=== PATIENT | female | born 1995 | race Caucasian/White ===

== ENCOUNTER 2016-07-18 13:40 | Emergency (ER) | END 2016-07-18 18:26 | disposition home or self-care (01) | DX: O20.0 Threatened abortion (principal); R10.2 Pelvic and perineal pain ==

== ENCOUNTER 2016-07-19 20:52 | Emergency (ER) | payer MEDICAID ==
[~2016-07-19] VITALS: Ht 162.6 cm; Wt 56.0 kg
[2016-07-19 21:31] VITALS: Ht 162.6 cm; Wt 56.0 kg
--- NOTE | 2016-07-19 23:15 | ERD ---
ER Documentation Chief Complaint Date/Time DATE: 07/19/16 TIME: 23:11 Chief Complaint back for worse pain and hormone check. HPI 19-year-old female presents here in emergency department for complaints of pelvic pain radiating to the back started 2 days ago, worst today. Patient also is having vaginal bleeding with the pain, states continuously bleeding. Patient is here today since patient's pain got worse. Patient is complaining of dysuria denies any hematuria. Patient denies any fever or chills. Patient denies any nausea or vomiting. Patient supposedly 5 weeks . ROS All systems reviewed and are negative except as per history of present illness. Medications Home Meds Reported Medications [none] Unknown Strength No Conflict Check 07/19/16 Allergies Allergies: Coded Allergies: No Known Allergy (Unverified , 07/19/16) PMhx/Soc Medical and Surgical Hx: pt denies Medical Hx, pt denies Surgical Hx Hx Alcohol Use: No Hx Substance Use: No Hx Tobacco Use: No FmHx Family History: No coronary disease, No diabetes, No other Physical Exam Vitals Vital Signs Date Time Temp Pulse Resp B/P Pulse Ox O2 Delivery O2 Flow Rate FiO2 07/19/16 21:31 98.3 78 16 118/74 97 Physical Exam GENERAL: The patient is well developed and appropriate for usual state of health, in no apparent distress. CHEST: Clear to auscultation bilaterally. There are no rales, wheezes or rhonchi. HEART: Regular rate and rhythm. No murmurs, clicks, rubs or gallops. No S3 or S4. ABDOMEN: Soft, nontender and nondistended. Good bowel sounds. No rebound or guarding. No gross peritonitis. No gross organomegaly or masses. No Alvarado sign or McBurney point tenderness. BACK: No midline or flank tenderness. EXTREMITIES: Equal pulses bilaterally. There is no peripheral clubbing, cyanosis or edema. No focal swelling or erythema. Full range of motion. Grossly neurovascularly intact. NEURO: Alert and oriented. Cranial nerves 2-12 intact. Motor strength in all 4 extremities with 5/5 strength. Sensation grossly intact. Normal speech and gait. SKIN: There is no apparent rash or petechia. The skin is warm and dry. HEMATOLOGIC AND LYMPHATIC: There is no evidence of excessive bruising or lymphedema. No gross cervical, axillary, or inguinal lymphadenopathy. Vaginal: Noted erythema in the perineal area labia majora and labia minora. Small amount of blood in the vaginal vault, cervical os is closed. No cervical motion tenderness noted. Result Diagram: 07/19/16 2348 Results 24 hrs Laboratory Tests Test 07/19/16 23:37 07/19/16 23:48 Urine Bacteria FEW Urine Bilirubin NEGATIVE Urine Clarity CLEAR Urine Color LT. YELLOW Urine Glucose NEGATIVE% Urine Hemoglobin 3+ Urine Ketones NEGATIVE Urine Leukocyte Esterase NEGATIVE Urine Microscopic RBC >50/HPF Urine Microscopic WBC 0-2/HPF Urine Mucus MANY Urine Nitrite NEGATIVE Urine Specific [place] 1.025 Urine Squamous Epithelial Cells MODERATE Urine Total Protein NEGATIVE Urine Urobilinogen 1.0 E.U./dL Urine pH 6.5 Basophils # 0.010^3/ul Basophils % 0.5% Beta HCG, Quantitative 673.9mIU/ml Blood Morphology Comment Eosinophils # 0.110^3/ul Eosinophils % 1.2% Hematocrit 37.1% Hemoglobin 12.5g/dl Lymphocytes # 3.010^3/ul Lymphocytes % 33.2% Mean Corpuscular Hemoglobin 34.2pg Mean Corpuscular Hemoglobin Concent 33.7g/dl Mean Corpuscular Volume 101.5fl Mean Platelet Volume 8.0fl Monocytes # 0.610^3/ul Monocytes % 7.2% Neutrophils # 5.210^3/ul Neutrophils % 57.9% Nucleated Red Blood Cells # 0.010^3/ul Nucleated Red Blood Cells % 0.0/100WBC Platelet Count 12306^3/UL Red Blood Count 3.6510^6/ul Red Cell Distribution Width 12.7% White Blood Count 8.910^3/ul PROCEDURE: US OB. CLINICAL INDICATION: . Vaginal bleeding. Clinical estimated gestational age is 7 weeks 4 days with estimated date of delivery 03/03/2017 TECHNIQUE: Transabdominal and transvaginal imaging of the gravid uterus was performed. Images are reviewed on a high-resolution PACS workstation. COMPARISON: 07/18/2016 FINDINGS: No intrauterine is seen. The right ovary measures 3.6 x 2.5 x 3.4 cm and contains a 2.9 cm follicle. The left ovary measures 2.5 x 1.9 x 1.6 cm and is unremarkable. No adnexal mass is seen. Trace free fluid is seen in the cul- de-sac. IMPRESSION: No intrauterine seen. The previously seen possible intrauterine gestational sac containing pole seen on the previous study is not seen presently. The findings could be secondary to spontaneous . Ectopic is not excluded. No ectopic is seen. Trace free fluid in cul-de-sac. Correlation with serial quantitative beta HCGs is recommended. RPTAT: HJES .Donald Cedillo MD, MD Date Time Electronically viewed and signed by .Donald Cedillo MD, MD on 07/20/2016 00:52 .S/ CC: EUSEBIO FORRESTER REVOLVING INVENTORY CLERK Procedures/MDM Medical Decision Making: Patients vaginal bleeding is most likely consistent of a spontaneous . Patient does not show any evidence of hypovolemic shock. Patients hemoglobin and hematocrit is stable. There is low suspicion for ectopic . CAROLINE results doesn't show the intrauterine seen yesterday, no adnexal masses noted, patient passed more clots and bleeding prior to the ultrasound. BetaHCG Quantitative is very low compared to yesterday The patient is Rh+, does not need RhoGAM this time. There is no signs of symptoms of dehydration. There is low suspicion for sepsis. Patient appears well and is hemodynamically stable. Disposition: Home. Condition: Stable. Prescription: Tylenol Instructions: Patient is advised to do bed rest, avoid heavy lifting, and avoid having sex until cleared by OB doctor. Patient is advised to follow up with OB doctor in 48 hours for reevaluation of symptoms, repeat beta HCG quantitative and ultrasound. Patient is advised that is symptoms are worst, severe bleeding, dizziness, severe abdominal pain, fever, worst signs and symptoms to return to the emergency department immediately. Departure Diagnosis: Primary Impression: Spontaneous Condition: Stable Patient Instructions: Miscarriage, Spontaneous (Completed) Additional Instructions: Patient is advised to do bed rest, avoid heavy lifting, and avoid having sex until cleared by OB doctor. Patient is advised to follow up with OB doctor 48 hours for reevaluation of symptoms, repeat beta HCG quantitative and ultrasound. Patient is advised that is symptoms are worst, severe bleeding, dizziness, severe abdominal pain, fever, worst signs and symptoms to return to the emergency department immediately. EUSEBIO FORRESTER NP Jul 19, 2016 23:15
--- NOTE | 2016-07-20 00:52 | RADRPT ---
PROCEDURE: US OB. CLINICAL INDICATION: . Vaginal bleeding. Clinical estimated gestational age is 7 weeks 4 days with estimated date of delivery 03/03/2017 TECHNIQUE: Transabdominal and transvaginal imaging of the gravid uterus was performed. Images are reviewed on a high-resolution PACS workstation. COMPARISON: 07/18/2016 FINDINGS: No intrauterine is seen. The right ovary measures 3.6 x 2.5 x 3.4 cm and contains a 2.9 c m follicle. The left ovary measures 2.5 x 1.9 x 1.6 cm and is unremarkable. No adnexal mass is see n. Trace free fluid is seen in the cul-de-sac. IMPRESSION: No intrauterine seen. The previously seen possible intrauterine gestational sac containing pole seen on the previous study is not seen presently. The findings could be secondary to sp ontaneous . Ectopic is not excluded. No ectopic is seen. Trace free fl uid in cul-de-sac. Correlation with serial quantitative beta HCGs is recommended. RPTAT: HJES .Donald Cedillo MD, MD Date Time Electronically viewed and signed by .Donald Cedillo MD, on 07/20/2016 00:52 .S/
[2016-07-20 01:10] LABS: BASOPHILS % 0.5 % (0.0-2.0); EOSINOPHILS # 0.1 10^3/ul (0.0-0.5); EOSINOPHILS % 1.2 % (0.0-7.0); HEMATOCRIT 37.1 % (37.0-47.0); HEMOGLOBIN 12.5 g/dl (12.0-16.0); LYMPHOCYTES % 33.2 % (18.0-55.0); MEAN CORPUSCULAR HEMOGLOBIN 34.2 pg (29.0-33.0); MEAN CORPUSCULAR HGB CONC 33.7 g/dl (32.0-37.0); MEAN CORPUSCULAR VOLUME 101.5 fl (72.0-104.0); MONOCYTE # 0.6 10^3/ul (0.3-0.9); MONOCYTES % 7.2 % (0.0-13.0); NEUTROPHIL # 5.2 10^3/ul (1.6-7.5); NEUTROPHILS % 57.9 % (30.0-74.0); PLATELET COUNT 265 10^3/UL (140-440); RED BLOOD COUNT 3.65 10^6/ul (4.20-5.40); RED CELL DISTRIBUTION WIDTH 12.7 % (11.5-14.5); UNCORRECTED WBC 8.9 10^3/ul (4.8-10.8); WHITE BLOOD COUNT 8.9 10^3/ul (4.8-10.8)
[2016-07-20 01:11] LABS: CONDITION 1; LH ANALYZER COMMENTS 1
[2016-07-20 01:19] LABS: ADD UMIC YES; URINE BILIRUBIN (Dip) NEGATIVE (NEGATIVE); URINE BLOOD (Dip) 3+ (NEGATIVE); URINE COLOR LT. YELLOW (YELLOW); URINE GLUCOSE (Dip) NEGATIVE (NEGATIVE); URINE KETONES (Dip) NEGATIVE (NEGATIVE); URINE LEUKOCYTE ESTERASE (Dip) NEGATIVE (NEGATIVE); URINE NITRITE (Dip) NEGATIVE (NEGATIVE); URINE TOTAL PROTEIN (Dip) NEGATIVE (NEGATIVE); URINE UROBILINOGEN (Dip) 1.0 E.U./dL (0.1-1.0)
[2016-07-20 01:27] LABS: BACTERIA,URINE FEW; SQUAMOUS EPITHELIAL CELL,UR MODERATE; URINE RBCS >50 /HPF (0)
[2016-07-20 01:28] LABS: MUCUS,URINE MANY
[2016-07-20] MEDS ORDERED: ACET500C5 PO (01:53)
[2016-07-20 02:08] VITALS: BP 132/71
== END 2016-07-20 02:09 | disposition home or self-care (01) ==
LOC: FTE 20:52
DX: O03.9 Complete or unspecified spontaneous abortion without complication (principal); R10.2 Pelvic and perineal pain
CPT/HCPCS: 36415; 76801; 76817; 81001; 84702; 85025; Z7502; 81003

== ENCOUNTER 2017-10-03 09:30 | Emergency (ER) | END 2017-10-03 10:23 | disposition home or self-care (01) ==

== ENCOUNTER 2018-01-24 10:42 | Emergency (ER) | END 2018-01-24 13:31 | disposition home or self-care (01) ==

== ENCOUNTER 2018-03-23 01:43 | Emergency (ER) | END 2018-03-23 04:10 | disposition home or self-care (01) ==

== ENCOUNTER 2018-06-25 12:15 | Emergency (ER) | payer BC, MEDICAID ==
[~2018-06-25] VITALS: Ht 167.6 cm; Wt 64.4 kg
[~2018-06-25 12:15] MED LIST: ACET325T33 PO; ACET500C5 PO; CEPH-443 PO; IBUP-1542 PO; PENI500T PO
[2018-06-25 12:30] VITALS: Ht 167.6 cm; Wt 64.4 kg
[2018-06-25] MEDS ORDERED: SOD CHLORIDE 0.9% 1,000 ML IV STA (13:30)
[2018-06-25] MEDS ORDERED: ONDANSETRON 4 MG INJ IV STA (13:30)
--- NOTE | 2018-06-25 14:14 | ERD ---
ER Documentation Chief Complaint Chief Complaint FEVER WITH NAUSEA/VOMITING AND POOR APPETITE X 2 DAYS HPI This is a 22-year-old female denies significant past medical history presents ED with complaints of nausea and vomiting times 3 days. Patient admits to having multiple episodes of nonbilious nonbloody vomiting. Patient also admits to feeling warm. Has not taken temperature. Denies chills, hemoptysis, diarrhea, constipation, melena, chest pain, abdominal pain, vaginal pain, vaginal discharge, vaginal bleeding or vaginal pain. No known drug allergies. ROS All systems reviewed and are negative except as per history of present illness. Medications Home Meds Active Scripts Ondansetron (Ondansetron Odt) 4 Mg Tab.rapdis, 4 MG PO Q6H PRN for NAUSEA AND/OR VOMITING, #10 TAB Prov:ARLEN MONTERO PA-C 06/25/18 Ibuprofen* (Motrin*) 600 Mg Tab, 600 MG PO Q6H PRN for PAIN AND OR ELEVATED TEMP, #30 TAB Prov:RICARDO LITTLEAR F 03/23/18 Cephalexin* (Keflex*) 500 Mg Capsule, 500 MG PO QID for 5 Days, CAP Prov:PASILABANRICARDOAR F 03/23/18 Acetaminophen* (Tylenol*) 325 Mg Tablet, 2 TAB PO Q6 PRN for PAIN AND OR ELEVATED TEMP, #20 TAB Prov:ANIKET MANCILLA PA-C 10/03/17 Ibuprofen* (Motrin*) 600 Mg Tab, 600 MG PO Q6, #30 TAB Prov:ANIKET MANCILLA PA-C 10/03/17 Penicillin V Potassium* (Penicillin V K*) 500 Mg Tab, 500 MG PO BID for 7 Days, #14 TAB Prov:ANIKET MANCILLA PA-C 10/03/17 Acetaminophen* (Tylophen*) 500 Mg Capsule, 1 CAP PO Q6H PRN for PAIN AND OR ELEVATED TEMP, #20 CAP Prov:EUSEBIO FORRESTER NP 07/20/16 Reported Medications [none] Unknown Strength No Conflict Check 07/19/16 Allergies Allergies: Coded Allergies: No Known Allergy (Unverified , 07/19/16) PMhx/Soc History of Surgery: No Anesthesia Reaction: No Hx Neurological Disorder: No Hx Respiratory Disorders: No Hx Cardiac Disorders: No Hx Psychiatric Problems: No Hx Alcohol Use: Yes (socially) Hx Substance Use: No Hx Tobacco Use: No FmHx Family History: No diabetes Physical Exam Vitals Vital Signs Date Temp Pulse Resp B/P (MAP) Pulse Ox O2 O2 Flow FiO2 Time Delivery Rate 06/25/18 98.3 82 18 130/71 99 Room Air 15:22 (90) 06/25/18 98.3 125 18 132/72 95 12:30 (92) Physical Exam Const: No acute distress Head: Atraumatic Eyes: Normal Conjunctiva ENT: Normal External Ears, Nose and Mouth. Neck: Full range of motion. No meningismus. Resp: Clear to auscultation bilaterally Cardio: Regular rate and rhythm, no murmurs Abd: Soft, non tender, non distended. Normal bowel sounds Skin: No petechiae or rashes Back: No midline or flank tenderness Ext: No cyanosis, or edema Neur: Awake and alert Psych: Normal Mood and Affect Result Diagram: 06/25/18 1351 06/25/18 1351 Results 24 hrs Laboratory Tests Test 06/25/18 13:51 06/25/18 14:00 White Blood Count 9.5 10^3/ul Red Blood Count 4.05 10^6/ul Hemoglobin 13.3 g/dl Hematocrit 40.5 % Mean Corpuscular Volume 100.0 fl Mean Corpuscular Hemoglobin 32.8 pg Mean Corpuscular Hemoglobin Concent 32.8 g/dl Red Cell Distribution Width 11.2 % Platelet Count 317 10^3/UL Mean Platelet Volume 9.3 fl Immature Granulocytes % 0.300 % Neutrophils % 82.0 % Lymphocytes % 12.9 % Monocytes % 4.4 % Eosinophils % 0.0 % Basophils % 0.4 % Nucleated Red Blood Cells % 0.0 /100WBC Immature Granulocytes # 0.030 10^3/ul Neutrophils # 7.8 10^3/ul Lymphocytes # 1.2 10^3/ul Monocytes # 0.4 10^3/ul Eosinophils # 0.0 10^3/ul Basophils # 0.0 10^3/ul Nucleated Red Blood Cells # 0.0 10^3/ul Sodium Level 145 mmol/L Potassium Level 3.7 mmol/L Chloride Level 103 mmol/L Carbon Dioxide Level 28 mmol/L Anion Gap 14 Blood Urea Nitrogen 20 mg/dl Creatinine 0.67 mg/dl Est Glomerular Filtrat Rate mL/min > 60 mL/min Glucose Level 102 mg/dl Calcium Level 9.8 mg/dl Total Bilirubin 0.4 mg/dl Direct Bilirubin 0.00 mg/dl Indirect Bilirubin 0.4 mg/dl Aspartate Amino Transf (AST/SGOT) 30 IU/L Alanine Aminotransferase (ALT/SGPT) 23 IU/L Alkaline Phosphatase 74 IU/L Total Protein 8.5 g/dl Albumin 4.8 g/dl Globulin 3.70 g/dl Albumin/Globulin Ratio 1.29 Lipase 78 U/L Urine Color YELLOW Urine Clarity SLIGHTLY CLOUDY Urine pH 5.0 Urine Specific [place] 1.028 Urine Ketones 2+ mg/dL Urine Nitrite NEGATIVE mg/dL Urine Bilirubin NEGATIVE mg/dL Urine Urobilinogen NEGATIVE mg/dL Urine Leukocyte Esterase 1+ Michele/ul Urine Microscopic RBC 4 /HPF Urine Microscopic WBC 18 /HPF Urine Squamous Epithelial Cells FEW /HPF Urine Mucus MODERATE /HPF Urine Hemoglobin 1+ mg/dL Urine Glucose NEGATIVE mg/dL Urine Total Protein 1+ mg/dl POC Beta HCG, Qualitative NEGATIVE Current Medications Medications Dose Sig/Arthur Start Time Status Last (Trade) Ordered Route PRN Stop Time Admin Dose Reason Admin Sodium 1,000 ml @ Q1H STAT 06/25/18 DC 06/25/18 Chloride 1,000 mls/hr IV 13:30 06/25/18 14:07 14:29 Ondansetron 4 mg ONCE STAT 06/25/18 DC 06/25/18 HCl (Zofran IV 13:30 06/25/18 14:07 Inj) 13:33 Procedures/MDM LAB INTERPRETATION: CBC shows no evidence of hemorrhage or infection Chemistry shows no evidence of significant electrolyte abnormalities or renal insufficiency Liver function test shows no evidence of acute biliary or hepatic dysfunction Coagulation study showed no concerning coagulopathy Lipase shows no evidence of acute pancreatitis urinalysis remarkable for 18 wbs, 4 rbcs, leuk esterase 1+ ER COURSE: The patient was given [IV normal saline and Zofran The medication was well tolerated and the patient reports improvement in symptoms. The patient was stable throughout ED course. I kept the patient and/or family informed of laboratory and diagnostic imaging results throughout the emergency room course. The patient was promptly evaluated and a treatment plan was devised based on H&P and other data. This plan was discussed with the patient who agreed and had no further questions or concerns prior to discharge. MEDICAL DECISION MAKING: This is a 22-year-old female presents ED with nausea and vomiting times 3 days. Her abdomen is soft and nontender to palpation. Patient was given fluids and antinausea medication in the emergency department and reports feeling better. Lab work is unremarkable. Urinalysis remarkable for WBC, RBC and leukocyte esterase 1+. Patient does not have any urinary symptoms. Will send for urine culture. At this time there is no gastrointestinal emergency. No evidence of appendicitis, cholecystitis, pink otitis, small bowel obstruction, perforated viscus, obstructive pyelonephritis, among others. Vitals are stable patient can be managed close outpatient follow-up. Advised patient follow-up with primary care next 48 hours. Return to ED with any worsening symptoms DISPOSITION PLAN: We discussed follow up with the patient's primary care doctor within 24 to 48 hours. Patient counseled regarding my diagnostic impression and care plan. Prior to discharge all questions answered. Pt agrees with treatment plan and understands strict return precautions. Precautionary instructions provided including instructions to return to the ER if not improving or for any worsening or changing symptoms or concerns. SPECIALIST FOLLOW UP RECOMMENDED: None Patient has been advised to follow up with primary care in 1-2 days. Disclaimer: Inadvertent spelling and grammatical errors are likely due to EHR/dictation software use and do not reflect on the overall quality of patient care. Also, please note that the electronic time recorded on this note does not necessarily reflect the actual time of the patient encounter. Departure Diagnosis: Primary Impression: Nausea and vomiting Vomiting type: unspecified Vomiting Intractability: non-intractable Qualified Codes: R11.2 - Nausea with vomiting, unspecified Condition: Stable Patient Instructions: Nausea and Vomiting-Adult Referrals: [facility] Additional Instructions: Patient advised to return to the ED immediately for new or worsening symptoms. Patient advised to follow up with primary care provider in the next 24-48 hours. Patient verbalized understanding and agrees with treatment plan and course of action. If patient has no primary care they may follow up with one of the community clinics listed on the following page or one of the options listed below [facility] + [facility] [address] [place] [id number] or [facility] [address] [place] [address] [address] ARLEN MONTERO PA-C 8, 2019 14:14
[2018-06-25] MEDS ORDERED: ONDA4TAB14 PO (15:14)
[2018-06-25 15:22] VITALS: BP 130/71; PULSE 82; RESP 18
== END 2018-06-25 15:23 | disposition home or self-care (01) ==
LOC: FTE 12:15
DX: R11.2 Nausea with vomiting, unspecified (principal)
CPT/HCPCS: 36415; 80053; 81001; 81025; 83690; 85025; 96361; 96374; 99284; J2405; J7030

== ENCOUNTER 2018-07-11 17:44 | Emergency (ER) | payer BC ==
[~2018-07-11] VITALS: Ht 162.6 cm; Wt 66.0 kg
[~2018-07-11 17:44] MED LIST changes: +ONDA4TAB14 PO
[2018-07-11 17:50] VITALS: Ht 162.6 cm; Wt 66.0 kg
--- NOTE | 2018-07-11 20:16 | ERD ---
ER Documentation Chief Complaint Chief Complaint LOWER ABD PAIN X 3 HRS , SENT BY PMD TO R/O ECTOPIC PREG HPI This is a 22-year-old female who was sent here by urgent care to rule out ectopic although the patient states she does not know if she is even . She started her period today and has lower left-sided pelvic cramping with bleeding. No dysuria or frequency. No nausea or vomiting or diarrhea. No fevers. ROS All systems reviewed and are negative except as per history of present illness. Medications Home Meds Active Scripts Ondansetron (Ondansetron Odt) 4 Mg Tab.rapdis, 4 MG PO Q6H PRN for NAUSEA AND/OR VOMITING, #10 TAB Prov:ARLEN MONTERO PA-C 06/25/18 Ibuprofen* (Motrin*) 600 Mg Tab, 600 MG PO Q6H PRN for PAIN AND OR ELEVATED TEMP, #30 TAB Prov:PRATIBHAILARICARDO RODNEYAR F 03/23/18 Cephalexin* (Keflex*) 500 Mg Capsule, 500 MG PO QID for 5 Days, CAP Prov:PASILABANRICARDOAR F 03/23/18 Acetaminophen* (Tylenol*) 325 Mg Tablet, 2 TAB PO Q6 PRN for PAIN AND OR ELEVATED TEMP, #20 TAB Prov:ANIKET MANCILLA PA-C 10/03/17 Ibuprofen* (Motrin*) 600 Mg Tab, 600 MG PO Q6, #30 TAB Prov:ANIKET MANCILLA PA-C 10/03/17 Penicillin V Potassium* (Penicillin V K*) 500 Mg Tab, 500 MG PO BID for 7 Days, #14 TAB Prov:ANIKET MANCILLA PA-C 10/03/17 Acetaminophen* (Tylophen*) 500 Mg Capsule, 1 CAP PO Q6H PRN for PAIN AND OR ELEVATED TEMP, #20 CAP Prov:EUSEBIO FORRESTER NP 07/20/16 Reported Medications [none] Unknown Strength No Conflict Check 07/19/16 Allergies Allergies: Coded Allergies: No Known Allergy (Unverified , 07/19/16) PMhx/Soc Medical and Surgical Hx: pt denies Medical Hx History of Surgery: No Anesthesia Reaction: No Hx Neurological Disorder: No Hx Respiratory Disorders: No Hx Cardiac Disorders: No Hx Psychiatric Problems: No Hx Alcohol Use: Yes (socially) Hx Substance Use: No Hx Tobacco Use: No Smoking Status: Never smoker FmHx Family History: No diabetes Physical Exam Vitals Vital Signs Date Temp Pulse Resp B/P (MAP) Pulse Ox O2 O2 Flow FiO2 Time Delivery Rate 07/11/18 98.1 93 18 116/79 98 17:50 (91) Physical Exam INITIAL VITAL SIGNS: Reviewed by me GENERAL: Awake, alert and oriented x 4, well appearing, nontoxic, speaking in full sentences. No acute distress HEAD: Atraumatic NECK: Supple. No masses. Full range of motion. No meningismus. No midline tenderness. EYES: EOMI. PERRL. RESPIRATORY: Clear to auscultation bilaterally. Symmetric chest wall rise. No wheezing or rales. No accessory muscle use. CV: Regular rate and rhythm. No murmurs, rubs, or gallops. ABDOMEN: Soft, non-distended. Nontender. Negative [place]. Negative McBurneys point tenderness. No CVA tenderness bilaterally. No guarding. No rebound. : Deffered. Result Diagram: 07/11/18190607/11/181906 Results 24 hrs Laboratory Tests Test 07/11/18 19:07 07/11/18 19:09 White Blood Count 10.7 10^3/ul Red Blood Count 3.76 10^6/ul Hemoglobin 12.5 g/dl Hematocrit 37.7 % Mean Corpuscular Volume 100.3 fl Mean Corpuscular Hemoglobin 33.2 pg Mean Corpuscular Hemoglobin Concent 33.2 g/dl Red Cell Distribution Width 11.5 % Platelet Count 282 10^3/UL Mean Platelet Volume 9.3 fl Immature Granulocytes % 0.400 % Neutrophils % 86.5 % Lymphocytes % 7.7 % Monocytes % 4.8 % Eosinophils % 0.2 % Basophils % 0.4 % Nucleated Red Blood Cells % 0.0 /100WBC Immature Granulocytes # 0.040 10^3/ul Neutrophils # 9.3 10^3/ul Lymphocytes # 0.8 10^3/ul Monocytes # 0.5 10^3/ul Eosinophils # 0.0 10^3/ul Basophils # 0.0 10^3/ul Nucleated Red Blood Cells # 0.0 10^3/ul Urine Color YELLOW Urine Clarity SLIGHTLY CLOUDY Urine pH 7.0 Urine Specific [place] 1.023 Urine Ketones TRACE mg/dL Urine Nitrite NEGATIVE mg/dL Urine Bilirubin NEGATIVE mg/dL Urine Urobilinogen NEGATIVE mg/dL Urine Leukocyte Esterase NEGATIVE Michele/ul Urine Microscopic RBC > 182 /HPF Urine Microscopic WBC 14 /HPF Urine Mucus FEW /HPF Urine Hemoglobin 3+ mg/dL Urine Glucose NEGATIVE mg/dL Urine Total Protein 1+ mg/dl Sodium Level 142 mmol/L Potassium Level 3.5 mmol/L Chloride Level 103 mmol/L Carbon Dioxide Level 27 mmol/L Anion Gap 12 Blood Urea Nitrogen 13 mg/dl Creatinine 0.67 mg/dl Est Glomerular Filtrat Rate mL/min > 60 mL/min Glucose Level 109 mg/dl Calcium Level 9.6 mg/dl Total Bilirubin 0.1 mg/dl Direct Bilirubin 0.00 mg/dl Indirect Bilirubin 0.1 mg/dl Aspartate Amino Transf (AST/SGOT) 21 IU/L Alanine Aminotransferase (ALT/SGPT) 14 IU/L Alkaline Phosphatase 87 IU/L Total Protein 8.2 g/dl Albumin 4.9 g/dl Globulin 3.30 g/dl Albumin/Globulin Ratio 1.48 Lipase 54 U/L POC Beta HCG, Qualitative NEGATIVE Procedures/MDM 22-year-old female who has pelvic cramping. She is hemodynamically stable and well-appearing. Her ultrasound is negative. Workup is unremarkable. Likely pelvic cramping from starting her menstruation today. She was given copies of all the labs and ultrasound so that she can follow-up with primary care. Patient counseled regarding my diagnostic impression and care plan. Prior to dis charge all questions answered. Pt agrees with treatment plan and understands strict return precautions. Pt is instructed to follow up with primary care provider within 24-48 hours. Precautionary instructions provided including instructions to return to the ER if not improving or for any worsening or changing symptoms or concerns. Departure Diagnosis: Primary Impression: Pelvic pain Condition: Stable Patient Instructions: Pelvic Pain, Unknown Cause Additional Instructions: Call your primary care doctor TOMORROW for an appointment during the next 1-2 days.See the doctor sooner or return here if your condition worsens before your appointment time. ISREAL FAROOQ PA-C Jul 11, 2018 20:16
[2018-07-11 20:21] VITALS: BP 119/69; PULSE 86; RESP 18
== END 2018-07-11 20:22 | disposition home or self-care (01) ==
LOC: FTE 17:44
DX: R10.2 Pelvic and perineal pain (principal)
CPT/HCPCS: 36415; 76830; 76856; 80053; 81001; 81025; 83690; 85025

== ENCOUNTER 2018-09-14 13:55 | Emergency (ER) | payer BC ==
[~2018-09-14] VITALS: Ht 162.6 cm; Wt 65.0 kg
[2018-09-14 14:08] VITALS: Ht 162.6 cm; Wt 65.0 kg
[2018-09-14] MEDS ORDERED: ACETAMINOPHEN 500 MG TAB PO STA (17:15)
[2018-09-14] MEDS ORDERED: DIPHENHYDRAMINE 25 MG CAP PO ONE (17:30)
[2018-09-14] MEDS ORDERED: METOCLOPRAMIDE 10 MG TAB PO ONE (17:30)
[2018-09-14] MEDS ORDERED: METO10TA92 PO (19:38)
[2018-09-14] MEDS ORDERED: CEPH-443 PO (19:38)
[2018-09-14] MEDS ORDERED: ACET500C5 PO (19:38)
[2018-09-14 19:50] VITALS: BP 116/74; PULSE 74; RESP 18
--- NOTE | 2018-09-14 19:56 | ERD ---
ER Documentation Chief Complaint Chief Complaint pt bib self with c/o n/v and feeling off for a few days HPI 22-year-old female patient who is a A2 presents to the ED stating that she skipped a period and now feels nauseous and had a few episodes of nonbilious nonbloody vomiting. Reports that she has some intermittent abdominal cramping in her lower abdomen. Rates her pain an 8 out of 10. Denies any vaginal bleeding, vaginal discharge, chest pain, shortness of breath, dysuria, urgency, or frequency. ROS All systems reviewed and are negative except as per history of present illness. Medications Home Meds Active Scripts Doxylamine/Pyridoxine Hcl (DICLEGIS DR 10-10 MG TABLET) 1 Each Tablet.dr, 2 TAB PO QHS for nausea, #60 TAB Start 2 tabs at night. if symptoms persist after 2 days, icnrease to 1 tab in the morning and tabs at night. If symptoms persist, increase to tab in the morning, 1 tab in the afternoon, and two tabs at night. Maximum of 4 tabs/day. Prov:MARY ANN VALLEJO 09/23/18 Metoclopramide* (Reglan*) 10 Mg Tablet, 10 MG PO Q6 PRN for NAUSEA AND/OR VOMITING, #10 TAB Prov:LISA PEREZ PA-C 09/14/18 Acetaminophen* (Tylophen*) 500 Mg Capsule, 1 CAP PO Q6H PRN for PAIN AND OR ELEVATED TEMP, #20 CAP Prov:LISA PEREZ PA-C 09/14/18 Cephalexin* (Keflex*) 500 Mg Capsule, 500 MG PO QID for 7 Days, CAP Prov:LISA PEREZ PA-C 09/14/18 Ondansetron (Ondansetron Odt) 4 Mg Tab.rapdis, 4 MG PO Q6H PRN for NAUSEA AND/OR VOMITING, #10 TAB Prov:ARLEN MONTERO PA-C 06/25/18 Ibuprofen* (Motrin*) 600 Mg Tab, 600 MG PO Q6H PRN for PAIN AND OR ELEVATED TEMP, #30 TAB Prov:ROSANNA LITTLE 03/23/18 Cephalexin* (Keflex*) 500 Mg Capsule, 500 MG PO QID for 5 Days, CAP Prov:ROSANNA LITTLE 03/23/18 Acetaminophen* (Tylenol*) 325 Mg Tablet, 2 TAB PO Q6 PRN for PAIN AND OR ELEVATED TEMP, #20 TAB Prov:ANIKET MANCILLA PA-C 10/03/17 Ibuprofen* (Motrin*) 600 Mg Tab, 600 MG PO Q6, #30 TAB Prov:ANIKET MANCILLA PA-C 10/03/17 Penicillin V Potassium* (Penicillin V K*) 500 Mg Tab, 500 MG PO BID for 7 Days, #14 TAB Prov:ANIKET MANCILLA PA-C 10/03/17 Acetaminophen* (Tylophen*) 500 Mg Capsule, 1 CAP PO Q6H PRN for PAIN AND OR ELEVATED TEMP, #20 CAP Prov:EUSEBIO FORRESETR NP 07/20/16 Reported Medications [none] Unknown Strength No Conflict Check 07/19/16 Allergies Allergies: Coded Allergies: No Known Allergy (Unverified , 09/23/18) PMhx/Soc History of Surgery: No Anesthesia Reaction: No Hx Neurological Disorder: No Hx Respiratory Disorders: No Hx Cardiac Disorders: No Hx Psychiatric Problems: No Hx Alcohol Use: Yes (socially) Hx Substance Use: No Hx Tobacco Use: No Smoking Status: Never smoker FmHx Family History: No diabetes, No coronary disease Physical Exam Vitals Vital Signs Date Temp Pulse Resp B/P (MAP) Pulse Ox O2 O2 Flow FiO2 Time Delivery Rate 09/14/18 98.6 74 18 116/74 100 Room Air 19:50 (88) 09/14/18 99.1 125 18 140/87 99 14:08 (104) Physical Exam Const: [id number], well-nourished. In no acute distress. Head: Atraumatic, normocephalic Eyes: Normal Conjunctiva without injection. No purulent discharge. ENT: Normal external ear, nose. Moist oropharynx without tonsillar exudates. Non-erythematous pharynx. Uvula midline. No drooling. No trismus. Neck: No cervical midline tenderness. Full range of motion. No meningismus. No cervical lymphadenopathy. No JVD. Resp: Clear to auscultation bilaterally. No wheezing, rhonchi, rales, or crackles. No accessory muscle use. No retractions. Cardio: Regular rate and rhythm. No murmurs, rubs or gallops. Abd: Soft, nontender, non distended. Normal bowel sounds. No palpable masses. No rebound tenderness. No guarding. Negative McBurney's point. Negative psoas sign. Negative obturator sign. Skin: No petechiae or rashes Back: No midline tenderness. No CVA tenderness. Ext: No cyanosis, or edema. Neur: Awake and alert. Normal gait. Normal coordination. Psych: Normal Mood and Affect Results 24 hrs Laboratory Tests Test 09/14/18 17:25 09/14/18 17:30 09/14/18 17:31 Urine Color YELLOW Urine Clarity SLIGHTLY CLOUDY Urine pH 5.0 Urine Specific [place] 1.028 Urine Ketones 2+ mg/dL Urine Nitrite NEGATIVE mg/dL Urine Bilirubin NEGATIVE mg/dL Urine Urobilinogen 1+ mg/dL Urine Leukocyte Esterase TRACE Michele/ul Urine Microscopic RBC 2 /HPF Urine Microscopic WBC 7 /HPF Urine Squamous Epithelial Cells FEW /HPF Urine Calcium Oxalate Crystals MODERATE /HPF Urine Bacteria FEW /HPF Urine Mucus MODERATE /HPF Urine Hemoglobin NEGATIVE mg/dL Urine Glucose NEGATIVE mg/dL Urine Total Protein NEGATIVE mg/dl White Blood Count 9.0 10^3/ul Red Blood Count 3.91 10^6/ul Hemoglobin 12.9 g/dl Hematocrit 38.4 % Mean Corpuscular Volume 98.2 fl Mean Corpuscular Hemoglobin 33.0 pg Mean Corpuscular 33.6 g/dl Hemoglobin Concent Red Cell Distribution Width 11.7 % Platelet Count 288 10^3/UL Mean Platelet Volume 9.3 fl Immature Granulocytes % 0.600 % Neutrophils % 77.3 % Lymphocytes % 15.7 % Monocytes % 5.9 % Eosinophils % 0.2 % Basophils % 0.3 % Nucleated Red Blood Cells % 0.0 /100WBC Immature Granulocytes # 0.050 10^3/ul Neutrophils # 7.0 10^3/ul Lymphocytes # 1.4 10^3/ul Monocytes # 0.5 10^3/ul Eosinophils # 0.0 10^3/ul Basophils # 0.0 10^3/ul Nucleated Red Blood Cells # 0.0 10^3/ul Sodium Level 139 mmol/L Potassium Level 3.7 mmol/L Chloride Level 101 mmol/L Carbon Dioxide Level 26 mmol/L Anion Gap 12 Blood Urea Nitrogen 19 mg/dl Creatinine 0.87 mg/dl Est Glomerular Filtrat > 60 mL/min Rate mL/min Glucose Level 104 mg/dl Calcium Level 9.9 mg/dl Total Bilirubin 0.5 mg/dl Direct Bilirubin 0.00 mg/dl Indirect Bilirubin 0.5 mg/dl Aspartate Amino 16 IU/L Transf (AST/SGOT) Alanine < 6 IU/L Aminotransferase (ALT/SGPT) Alkaline Phosphatase 61 IU/L Total Protein 8.2 g/dl Albumin 4.7 g/dl Globulin 3.50 g/dl Albumin/Globulin Ratio 1.34 Lipase 50 U/L Beta HCG, Quantitative 76652.0 mIU/ml POC Beta HCG, Qualitative POSITIVE Current Medications Medications Dose Sig/Arthur Start Time Status Last (Trade) Ordered Route PRN Stop Time Admin Dose Reason Admin 500 mg ONCE STAT 09/14/18 DC 09/14/18 Acetaminophen PO 17:15 17:30 (Tylenol 09/14/18 17:18 Tab) 10 mg ONCE ONCE 09/14/18 DC 09/14/18 Metoclopramid PO 17:30 17:30 e HCl 09/14/18 17:31 (Reglan) 25 mg ONCE ONCE 09/14/18 DC 09/14/18 Diphenhydrami PO 17:30 17:30 ne HCl 09/14/18 17:31 (Benadryl) Procedures/MDM 22-year-old female patient with no significant past medical history is a A2 presents to the ED complaining of abdominal cramping, nausea, vomiting and missing her menstruation. Patient has a blood pressure 140/87. Blood Pressure Assessment: Patient's blood pressure was elevated (>120/80) but appears stable without evidence of hypertension emergency or urgency. The patient was counseled about the risks of hypertension and urged to pursue outpatient monitoring and therapy within a week with their primary care physician. An ultrasound, beta-hCG, CBC, type and RH, UA was ordered to evaluate patient. CBC: No evidence of severe infection or anemia Urine: No elevation in nitrites, trace leukocyte esterase, hematuria. 7wbc Rh: O positive No indication for Rhogam at this time. beta Hc,146 IMPRESSION: 1. Small sac-like structure has developed in the endometrial cavity which may represent an early intrauterine . Estimated gestational age by mean sac diameter would be 6 weeks 4 days plus or minus 1 week that is somewhat concordant with the expected gestational age by dates. Without visualizing a yolk sac or embryo, a definitive diagnosis of intrauterine cannot be made and, therefore, ectopic cannot be completely excluded but is extremely unlikely. Furthermore, viability cannot be established. Recommend correlation with serial serum beta HCG and follow-up ultrasound in 7-10 days or earlier if clinically warranted. 2. A normal-appearing right ovary with vascular flow demonstrated on Doppler. The left ovary is not evident. 3. No adnexal mass or free fluid is identified. Patient currently has no abdominal pain. At this time however still cannot rule out ectopic as there is no pole or yolk sac noted. Patient will be treated for a urinary tract infection. There is a possible 6-week 4-day gestational sac noted. Patient was strictly instructed to follow-up with her [employer] for further evaluation and treatment as well as ruling out ectopic . Patient at this time was appropriate for outpatient management however is strictly instructed to return for any abdominal pain, vaginal bleeding. Low suspicion for symptomatic anemia, ectopic , sepsis, PID, appendicitis, ovarian torsion, tubo-ovarian abscess, surgical abdomen, or other emergent conditions. Patient was educated that there is a risk for threatened . Discharge medications: Reglan, Keflex, Tylenol Patient to follow up with [employer] in 2 days for further evaluation and treatment. Patient is to return sooner to the ED for any worsening symptoms. Patient's questions were answered. Patient understood and agreed with discharge plan. Departure Diagnosis: Primary Impression: Pelvic pain during Condition: Stable Patient Instructions: Urinary Tract Infections in Women, : Your First Trimester Changes, : Common Questions, : More Common Questions, : Body Changes, A Walking Program for Peripheral Arterial Disease (PAD), , New Dx Referrals: COMMUNITY CLINICS YOU HAVE RECEIVED A MEDICAL SCREENING EXAM AND THE RESULTS INDICATE THAT YOU DO NOT HAVE A CONDITION THAT REQUIRES URGENT TREATMENT IN THE EMERGENCY DEPARTMENT. FURTHER EVALUATION AND TREATMENT OF YOUR CONDITION CAN WAIT UNTIL YOU ARE SEEN IN YOUR DOCTORS OFFICE WITHIN THE NEXT 1-2 DAYS. IT IS YOUR RESPONSIBILITY TO MA KE AN APPOINTMENT FOR FOLOW-UP CARE. IF YOU HAVE A PRIMARY DOCTOR --you should call your primary doctor and schedule an appointment IF YOU DO NOT HAVE A PRIMARY DOCTOR YOU CAN CALL OUR PHYSICIAN REFERRAL HOTLINE AT IF YOU CAN NOT AFFORD TO SEE A PHYSICIAN YOU CAN CHOSE FROM THE FOLLOWING [facility] [address] [place] [facility] [address] [place] [facility] [address] [facility] [address] [facility] [address] [facility]. [address] [facility]. [facility] YOU HAVE RECEIVED A MEDICAL SCREENING EXAM AND THE RESULTS INDICATE THAT YOU DO NOT HAVE A CONDITION THAT REQUIRES URGENT TREATMENT IN THE EMERGENCY DEPARTMENT. FURTHER EVALUATION AND TREATMENT OF YOUR CONDITION CAN WAIT UNTIL YOU ARE SEEN IN YOUR DOCTORS OFFICE WITHIN THE NEXT 1-2 DAYS. IT IS YOUR RESPONSIBILITY TO MAKE AN APPOINTMENT FOR FOLOW-UP CARE. IF YOU HAVE A PRIMARY DOCTOR --you should call your primary doctor and schedule and appointment IF YOU DO NOT HAVE A PRIMARY DOCTOR YOU CAN CALL OUR PHYSICIAN REFERRAL HOTLINE AT . IF YOU CAN NOT AFFORD TO SEE A PHYSICIAN YOU CAN CHOSE FROM THE FOLLOWING [facility] INSTITUTIONS: [facility] [address] [place] [address] [facility] [address] [place] [address] [facility] [address] [place] [address] [facility]RGENT [facility]/SPECIALTIES Additional Instructions: Call your primary care doctor for an appointment during the next 2 days to repeat beta hcg and ultrasound to rule out ecoptic .See the doctor sooner or return here if your condition worsens before your appointment time - worsening abdominal pain, fever, chills, chest pain, shortness of breath. LISA PEREZ PA-C Sep 14, 2018 19:56
== END 2018-09-14 19:52 | disposition home or self-care (01) ==
LOC: FTE 13:55
DX: O26.891 Other specified pregnancy related conditions, first trimester (principal); R10.2 Pelvic and perineal pain; Z3A.01 Less than 8 weeks gestation of pregnancy
CPT/HCPCS: 76801; 76817; 80053; 81001; 81025; 83690; 84702; 85025; 86900; 86901; Z7610; 36415

== ENCOUNTER → 2018-09-16 | Emergency (ER) | payer BC ==
[~2018-09-16] VITALS: Ht 160 cm; Wt 65.3 kg
[~2018-09-16] MED LIST changes: +CEFTRIAXONE 1 GM INJ IM ONE; +CEFTRIAXONE 1 GM/50 ML (PMX) 50 ML IVPB ONE; +LIDOCAINE 1% (MPF) 5 ML VIAL INFIL ONE; +METO10TA92 PO; +METOCLOPRAMIDE 10 MG TAB PO ONE
[2018-09-16 19:50] VITALS: BP 137/66; PULSE 88; RESP 16; Ht 160 cm; Wt 65.3 kg
--- NOTE | 2018-09-16 21:48 | ERD ---
ER Documentation Chief Complaint Chief Complaint pt did miles RX for UTI and s/s are worse, smells of marijuana HPI 22-year-old female, with EGA 6 weeks without pole seen by ultrasound done 2 days ago, presents to the emergency department, complaining of persistent nausea and pelvic discomfort. The patient has not taken the cephalexin prescribed 2 days ago. She denies fevers, no chills, no vaginal bleeding, no vaginal discharge. ROS All systems reviewed and are negative except as per history of present illness. Medications Home Meds Active Scripts Metoclopramide* (Reglan*) 10 Mg Tablet, 10 MG PO Q6 PRN for NAUSEA AND/OR VOMITING, #10 TAB Prov:LISA PEREZ PA-C 09/14/18 Acetaminophen* (Tylophen*) 500 Mg Capsule, 1 CAP PO Q6H PRN for PAIN AND OR ELEVATED TEMP, #20 CAP Prov:LISA PEREZ PA-C 09/14/18 Cephalexin* (Keflex*) 500 Mg Capsule, 500 MG PO QID for 7 Days, CAP Prov:LISA PEREZ PA-C 09/14/18 Ondansetron (Ondansetron Odt) 4 Mg Tab.rapdis, 4 MG PO Q6H PRN for NAUSEA AND/OR VOMITING, #10 TAB Prov:ARLEN MONTERO PA-C 06/25/18 Ibuprofen* (Motrin*) 600 Mg Tab, 600 MG PO Q6H PRN for PAIN AND OR ELEVATED TEMP, #30 TAB Prov:RICARDO LITTLEAR F 03/23/18 Cephalexin* (Keflex*) 500 Mg Capsule, 500 MG PO QID for 5 Days, CAP Prov:PRATIBHAILARICARDO RODNEYAR F 03/23/18 Acetaminophen* (Tylenol*) 325 Mg Tablet, 2 TAB PO Q6 PRN for PAIN AND OR ELEVATED TEMP, #20 TAB Prov:ANIKET MANCILLA PA-C 10/03/17 Ibuprofen* (Motrin*) 600 Mg Tab, 600 MG PO Q6, #30 TAB Prov:ANIKET MANCILLA PA-C 10/03/17 Penicillin V Potassium* (Penicillin V K*) 500 Mg Tab, 500 MG PO BID for 7 Days, #14 TAB Prov:ANIKET MANCILLA PA-C 10/03/17 Acetaminophen* (Tylophen*) 500 Mg Capsule, 1 CAP PO Q6H PRN for PAIN AND OR ELEVATED TEMP, #20 CAP Prov:EUSEBIO FORRESTER DOWNS TJessee ROJAS 07/20/16 Reported Medications [none] Unknown Strength No Conflict Check 07/19/16 Allergies Allergies: Coded Allergies: No Known Allergy (Unverified , 09/14/18) PMhx/Soc Medical and Surgical Hx: pt denies Medical Hx, pt denies Surgical Hx History of Surgery: No Anesthesia Reaction: No Hx Neurological Disorder: No Hx Respiratory Disorders: No Hx Cardiac Disorders: No Hx Psychiatric Problems: No Hx Alcohol Use: No Hx Substance Use: No Hx Tobacco Use: No Smoking Status: Never smoker FmHx Family History: No diabetes, No coronary disease Physical Exam Vitals Vital Signs Date Temp Pulse Resp B/P (MAP) Pulse Ox O2 O2 Flow FiO2 Time Delivery Rate 09/16/18 99.2 88 16 137/66 97 19:50 (89) Physical Exam Const: No acute distress Head: Atraumatic Eyes: Normal Conjunctiva ENT: Normal External Ears, Nose and Mouth. Neck: Full range of motion. No meningismus. Resp: Clear to auscultation bilaterally Cardio: Regular rate and rhythm, no murmurs Abd: Soft, non tender, non distended. Normal bowel sounds Skin: No petechiae or rashes Back: No midline or flank tenderness Ext: No cyanosis, or edema Neur: Awake and alert Psych: Normal Mood and Affect Result Diagram: 09/16/18220509/16/182205 Results 24 hrs Laboratory Tests Test 09/16/18 22:06 White Blood Count 8.5 10^3/ul Red Blood Count 3.89 10^6/ul Hemoglobin 12.8 g/dl Hematocrit 38.5 % Mean Corpuscular Volume 99.0 fl Mean Corpuscular Hemoglobin 32.9 pg Mean Corpuscular Hemoglobin Concent 33.2 g/dl Red Cell Distribution Width 11.8 % Platelet Count 273 10^3/UL Mean Platelet Volume 9.0 fl Immature Granulocytes % 0.400 % Neutrophils % 72.7 % Lymphocytes % 19.5 % Monocytes % 6.7 % Eosinophils % 0.2 % Basophils % 0.5 % Nucleated Red Blood Cells % 0.0 /100WBC Immature Granulocytes # 0.030 10^3/ul Neutrophils # 6.1 10^3/ul Lymphocytes # 1.7 10^3/ul Monocytes # 0.6 10^3/ul Eosinophils # 0.0 10^3/ul Basophils # 0.0 10^3/ul Nucleated Red Blood Cells # 0.0 10^3/ul Urine Color ROBERT Urine Clarity CLOUDY Urine pH 5.0 Urine Specific [place] 1.029 Urine Ketones 2+ mg/dL Urine Nitrite NEGATIVE mg/dL Urine Bilirubin NEGATIVE mg/dL Urine Urobilinogen 1+ mg/dL Urine Leukocyte Esterase 3+ Michele/ul Urine Microscopic RBC 12 /HPF Urine Microscopic WBC 91 /HPF Urine Squamous Epithelial Cells MANY /HPF Urine Bacteria FEW /HPF Urine Mucus MODERATE /HPF Urine Hemoglobin 2+ mg/dL Urine Glucose NEGATIVE mg/dL Urine Total Protein 1+ mg/dl Sodium Level 138 mmol/L Potassium Level 3.2 mmol/L Chloride Level 102 mmol/L Carbon Dioxide Level 27 mmol/L Anion Gap 9 Blood Urea Nitrogen 15 mg/dl Creatinine 0.61 mg/dl Est Glomerular Filtrat Rate mL/min > 60 mL/min Glucose Level 101 mg/dl Calcium Level 9.8 mg/dl Beta HCG, Quantitative 66399.0 mIU/ml Current Medications Medications Dose Sig/Arthur Start Time Status Last (Trade) Ordered Route PRN Stop Time Admin Dose Reason Admin 10 mg ONCE ONCE 09/16/18 DC 09/16/18 Metoclopramid PO 22:00 09/16/18 22:05 e HCl 22:01 (Reglan) Ceftriaxone 50 ml @ ONCE ONCE 09/16/18 Cancel Sodium 100 mls/hr IVPB 23:30 09/16/18 23:59 Lidocaine 5 ml ONCE ONCE 09/16/18 DC 09/17/18 (Xylocaine INFIL 23:30 09/16/18 00:06 1% (Mpf)) 23:34 Ceftriaxone 1 gm ONCE ONCE 09/17/18 DC 09/17/18 Sodium IM 00:00 09/17/18 00:06 (Rocephin) 00:01 Procedures/MDM Vital signs stable, Physical exam unremarkable. Differential diagnosis include but not limited to: UTI, threatening , incomplete versus complete , ectopic , physiologic implantation bleeding, molar . Physical examination and clinical presentation most likely consistent with urinary tract infection without evidence of pyelonephritis. During the ED course the patient remained hemodynamically stable and asymptomatic. Results and clinical impression discussed with patient who agrees with management. The patient is stable to be treated outpatient and will be discharged home with close monitoring and follow-up in 2 days with her primary physician. Bed rest and pelvic rest recommended until further medical evaluation. The patient was instructed regarding the outcomes and the potential complications like severe bleeding and . If the patient presents severe bleeding or pain, she was instructed to return to the hospital immediately. Disclaimer: Inadvertent spelling and grammatical errors are likely due to EHR/dictation software use and do not reflect on the overall quality of patient care. Also, please note that the electronic time recorded on this note does not necessarily reflect the actual time of the patient encounter. Departure Diagnosis: Primary Impression: UTI in Condition: Stable Additional Instructions: Thank you very much for allowing us to participate in your care. Your health and safety is our top priority at [facility]. Call your primary care doctor TOMORROW for an appointment during the next 2-4 days and bring all the information and medications prescribed. Have prescriptions filled and follow precisely the directions on the label. If the symptoms get worse and your provider is unavailable, return to the Emergency Department immediately. GISELE CASTAÑEDA MD Sep 16, 2018 21:48
== END | disposition home or self-care (01) ==
LOC: FTE 19:34
DX: O23.41 Unspecified infection of urinary tract in pregnancy, first trimester (principal); R10.2 Pelvic and perineal pain; Z3A.01 Less than 8 weeks gestation of pregnancy
CPT/HCPCS: 80048; 81001; 84702; 85025; 99284; J0696; Z7610; 96372

== ENCOUNTER 2018-09-23 19:14 | Emergency (ER) | payer BC ==
[~2018-09-23] VITALS: Ht 162.6 cm; Wt 64.8 kg
[~2018-09-23 19:14] MED LIST changes: -CEFTRIAXONE 1 GM INJ IM ONE; -CEFTRIAXONE 1 GM/50 ML (PMX) 50 ML IVPB ONE; -LIDOCAINE 1% (MPF) 5 ML VIAL INFIL ONE; -METOCLOPRAMIDE 10 MG TAB PO ONE
[2018-09-23 19:25] VITALS: Ht 162.6 cm; Wt 64.8 kg
[2018-09-23] MEDS ORDERED: METOCLOPRAMIDE 10 MG INJ IV STA (21:15)
[2018-09-23] MEDS ORDERED: SOD CHLORIDE 0.9% 1,000 ML IV STA (21:15)
--- NOTE | 2018-09-23 21:26 | ERD ---
ER Documentation Chief Complaint Chief Complaint increase nausea vomiting. 8 weeks . was told to return if worse. HPI 22-year-old 8-week female presents with complaint of nausea and vomiting. States that she is experiences in her previous 2 pregnancies as well. States that she is not been vomiting so much but the last episode was this morning but her main complaint is the nausea. States that her doctor put her on metoclopramide which has been taking every 6 hours. Last dose was 5 hours ago In addition she was treated last week for UTI with Keflex. Stated that she is no longer having any dysuria. . Denies flank pain, hematuria, vaginal discharge, vaginal bleeding, abdominal pain, diarrhea, fevers. ROS All systems reviewed and are negative except as per history of present illness. Medications Home Meds Active Scripts Doxylamine/Pyridoxine Hcl (DICLEGIS DR 10-10 MG TABLET) 1 Each Tablet.dr, 2 TAB PO QHS for nausea, #60 TAB Start 2 tabs at night. if symptoms persist after 2 days, icnrease to 1 tab in the morning and tabs at night. If symptoms persist, increase to tab in the morning, 1 tab in the afternoon, and two tabs at night. Maximum of 4 tabs/day. Prov:MARY ANN VALLEJO 09/23/18 Metoclopramide* (Reglan*) 10 Mg Tablet, 10 MG PO Q6 PRN for NAUSEA AND/OR VOMITING, #10 TAB Prov:LISA PEREZ PA-C 09/14/18 Acetaminophen* (Tylophen*) 500 Mg Capsule, 1 CAP PO Q6H PRN for PAIN AND OR NABEEL VATED TEMP, #20 CAP Prov:LISA PEREZ PA-C 09/14/18 Cephalexin* (Keflex*) 500 Mg Capsule, 500 MG PO QID for 7 Days, CAP Prov:LISA PEREZ PA-C 09/14/18 Ondansetron (Ondansetron Odt) 4 Mg Tab.rapdis, 4 MG PO Q6H PRN for NAUSEA AND/OR VOMITING, #10 TAB Prov:ARLEN MONTERO PA-C 06/25/18 Ibuprofen* (Motrin*) 600 Mg Tab, 600 MG PO Q6H PRN for PAIN AND OR ELEVATED TEMP, #30 TAB Prov:ROSANNA LITTLE 03/23/18 Cephalexin* (Keflex*) 500 Mg Capsule, 500 MG PO QID for 5 Days, CAP Prov:ROSANNA LITTLE 03/23/18 Acetaminophen* (Tylenol*) 325 Mg Tablet, 2 TAB PO Q6 PRN for PAIN AND OR ELEVAT ED TEMP, #20 TAB Prov:ANIKET MANCILLA PA-C 10/03/17 Ibuprofen* (Motrin*) 600 Mg Tab, 600 MG PO Q6, #30 TAB Prov:ANIKET MANCILLA PA-C 10/03/17 Penicillin V Potassium* (Penicillin V K*) 500 Mg Tab, 500 MG PO BID for 7 Days, #14 TAB Prov:ANIKET MANCILLA PA-C 10/03/17 Acetaminophen* (Tylophen*) 500 Mg Capsule, 1 CAP PO Q6H PRN for PAIN AND OR ELEVATED TEMP, #20 CAP Prov:EUSEBIO FORRESTER DOUBLE END [employer]ER SETTER 07/20/16 Reported Medications [none] Unknown Strength No Conflict Check 07/19/16 Allergies Allergies: Coded Allergies: No Known Allergy (Unverified , 09/23/18) PMhx/Soc Medical and Surgical Hx: pt denies Medical Hx History of Surgery: No Anesthesia Reaction: No Hx Neurological Disorder: No Hx Respiratory Disorders: No Hx Cardiac Disorders: No Hx Psychiatric Problems: No Hx Alcohol Use: No Hx Substance Use: No Hx Tobacco Use: No Smoking Status: Never smoker FmHx Family History: No diabetes, No coronary disease, No other Physical Exam Vitals Vital Signs Date Temp Pulse Resp B/P (MAP) Pulse Ox O2 O2 Flow FiO2 Time Delivery Rate 09/23/18 98.7 91 20 137/71 97 19:25 (93) Physical Exam Const: No acute distress Head: Atraumatic Eyes: Normal Conjunctiva ENT: Normal External Ears, Nose and Mouth. Neck: Full range of motion. No meningismus. Resp: Clear to auscultation bilaterally Cardio: Regular rate and rhythm, no murmurs Abd: Soft, non tender, non distended. Normal bowel sounds Skin: No petechiae or rashes Back: No midline or flank tenderness Ext: No cyanosis, or edema Neur: Awake and alert Psych: Normal Mood and Affect Result Diagram: 4214009/23/18 214 Results 24 hrs Laboratory Tests Test 09/23/18 21:41 White Blood Count 10.1 10^3/ul Red Blood Count 3.81 10^6/ul Hemoglobin 12.7 g/dl Hematocrit 37.6 % Mean Corpuscular Volume 98.7 fl Mean Corpuscular Hemoglobin 33.3 pg Mean Corpuscular Hemoglobin Concent 33.8 g/dl Red Cell Distribution Width 11.8 % Platelet Count 352 10^3/UL Mean Platelet Volume 10.1 fl Immature Granulocytes % 0.400 % Neutrophils % 70.1 % Lymphocytes % 22.0 % Monocytes % 6.8 % Eosinophils % 0.2 % Basophils % 0.5 % Nucleated Red Blood Cells % 0.0 /100WBC Immature Granulocytes # 0.040 10^3/ul Neutrophils # 7.1 10^3/ul Lymphocytes # 2.2 10^3/ul Monocytes # 0.7 10^3/ul Eosinophils # 0.0 10^3/ul Basophils # 0.1 10^3/ul Nucleated Red Blood Cells # 0.0 10^3/ul Urine Color YELLOW Urine Clarity SLIGHTLY CLOUDY Urine pH 6.0 Urine Specific [place] 1.026 Urine Ketones 2+ mg/dL Urine Nitrite NEGATIVE mg/dL Urine Bilirubin NEGATIVE mg/dL Urine Urobilinogen 2+ mg/dL Urine Leukocyte Esterase TRACE Michele/ul Urine Microscopic RBC 2 /HPF Urine Microscopic WBC 6 /HPF Urine Squamous Epithelial Cells FEW /HPF Urine Calcium Oxalate Crystals FEW /HPF Urine Mucus MODERATE /HPF Urine Hemoglobin 1+ mg/dL Urine Glucose NEGATIVE mg/dL Urine Total Protein NEGATIVE mg/dl Sodium Level 139 mmol/L Potassium Level 3.4 mmol/L Chloride Level 103 mmol/L Carbon Dioxide Level 24 mmol/L Anion Gap 12 Blood Urea Nitrogen 16 mg/dl Creatinine 0.68 mg/dl Est Glomerular Filtrat Rate mL/min > 60 mL/min Glucose Level 83 mg/dl Calcium Level 9.2 mg/dl Total Bilirubin 0.2 mg/dl Direct Bilirubin 0.00 mg/dl Indirect Bilirubin 0.2 mg/dl Aspartate Amino Transf (AST/SGOT) 16 IU/L Alanine Aminotransferase (ALT/SGPT) 16 IU/L Alkaline Phosphatase 56 IU/L Total Protein 7.3 g/dl Albumin 4.2 g/dl Globulin 3.10 g/dl Albumin/Globulin Ratio 1.35 Lipase 68 U/L Beta HCG, Quantitative > 79854.0 mIU/ml Current Medications Medications Dose Sig/Arthur Start Time Status Last (Trade) Ordered Route PRN Stop Time Admin Dose Reason Admin Sodium 1,000 ml @ Q1H STAT 09/23/18 DC 09/23/18 Chloride 1,000 mls/hr IV 21:15 09/23/18 21:47 22:14 10 mg ONCE STAT 09/23/18 DC 09/23/18 Metoclopramid IV 21:15 09/23/18 21:46 e HCl 21:21 (Reglan) Procedures/MDM All labs and urinalysis are within normal limits. Patient was likely suffering from hyperemesis gravidarum. Patient given metoclopramide and IV fluids. At time of discharge patient states that she was not feeling nauseous anymore. Patient given Rx for diclegis. I will suspicion for pyelonephritis, appendicitis, ovarian torsion, acute abdomen, or any other emergent condition. Patient advised that if her dysuria continues or she experiences any fevers, vomiting, or flank pain that she needs to return to the ER immediately. Patient discharged with strict ER precautions. Patient advised to follow up with PMD. All questions answered at discharge. Departure Diagnosis: Primary Impression: Hyperemesis gravidarum Condition: Serious MARY ANN VALLEJO Sep 23, 2018 21:26
[2018-09-23] MEDS ORDERED: DOXY1TAB3 PO (22:43)
[2018-09-23 23:04] VITALS: BP 107/64; PULSE 88; RESP 18
== END 2018-09-23 23:05 | disposition home or self-care (01) ==
LOC: FTE 19:14
DX: O21.0 Mild hyperemesis gravidarum (principal); Z3A.08 8 weeks gestation of pregnancy
CPT/HCPCS: 36415; 80053; 81001; 83690; 84702; 85025; 87086; 96374; 99284; J2765; J7030

== ENCOUNTER 2018-10-02 11:17 | Emergency (ER) | payer BC ==
[~2018-10-02] VITALS: Ht 162.6 cm; Wt 61.6 kg
[~2018-10-02 11:17] MED LIST changes: +DOXY1TAB3 PO
[2018-10-02 11:36] VITALS: Ht 162.6 cm; Wt 61.6 kg
[2018-10-02] MEDS ORDERED: SOD CHLORIDE 0.9% 1,000 ML IV STA (11:57)
[2018-10-02] MEDS ORDERED: FAMOTIDINE 20 MG INJ IV STA (11:57)
[2018-10-02] MEDS ORDERED: METOCLOPRAMIDE 10 MG INJ IV STA (11:57)
[2018-10-02] MEDS ORDERED: CEPH-443 PO (13:33)
--- NOTE | 2018-10-02 13:38 | ERD ---
ER Documentation Chief Complaint Chief Complaint VOMITTING " BLOOD" - LMP 07/20/18 HPI 22-year-old female presents with vomiting for the last day. She states she vomited blood which was bright red streaks. She currently denies vomiting. She is approximately 8-week by date. She denies dysuria, vaginal bleeding, abdominal pain. She denies diarrhea. Patient denies nosebleed or bleeding from other sites. ROS All systems reviewed and are negative except as per history of present illness. Medications Home Meds Active Scripts Cephalexin* (Keflex*) 500 Mg Capsule, 500 MG PO QID for 5 Days, CAP Prov:KEELY VILLAGOMEZ MD 10/02/18 Doxylamine/Pyridoxine Hcl (DICLEGIS DR 10-10 MG TABLET) 1 Each Tablet.dr, 2 TAB PO QHS for nausea, #60 TAB Start 2 tabs at night. if symptoms persist after 2 days, icnrease to 1 tab in the morning and tabs at night. If symptoms persist, increase to tab in the morning, 1 tab in the afternoon, and two tabs at night. Maximum of 4 tabs/day. Prov:MARY ANN VALLEJO 09/23/18 Metoclopramide* (Reglan*) 10 Mg Tablet, 10 MG PO Q6 PRN for NAUSEA AND/OR VOMITING, #10 TAB Prov:LISA PEREZ PA-C 09/14/18 Acetaminophen* (Tylophen*) 500 Mg Capsule, 1 CAP PO Q6H PRN for PAIN AND OR ELEVATED TEMP, #20 CAP Prov:LISA PEREZ PA-C 09/14/18 Cephalexin* (Keflex*) 500 Mg Capsule, 500 MG PO QID for 7 Days, CAP Prov:LISA PEREZ PA-C 09/14/18 Ondansetron (Ondansetron Odt) 4 Mg Tab.rapdis, 4 MG PO Q6H PRN for NAUSEA AND/OR VOMITING, #10 TAB Prov:ARLEN MONTERO PA-C 06/25/18 Ibuprofen* (Motrin*) 600 Mg Tab, 600 MG PO Q6H PRN for PAIN AND OR ELEVATED TEMP, #30 TAB Prov:ROSANNA LITTLE 03/23/18 Cephalexin* (Keflex*) 500 Mg Capsule, 500 MG PO QID for 5 Days, CAP Prov:ROSANNA LITTLE 03/23/18 Acetaminophen* (Tylenol*) 325 Mg Tablet, 2 TAB PO Q6 PRN for PAIN AND OR ELEVATED TEMP, #20 TAB Prov:ANIKET MANCILLA PA-C 10/03/17 Ibuprofen* (Motrin*) 600 Mg Tab, 600 MG PO Q6, #30 TAB Prov:ANIKET MANCILLA PA-C 10/03/17 Penicillin V Potassium* (Penicillin V K*) 500 Mg Tab, 500 MG PO BID for 7 Days, #14 TAB Prov:ANIKET MANCILLA PA-C 10/03/17 Acetaminophen* (Tylophen*) 500 Mg Capsule, 1 CAP PO Q6H PRN for PAIN AND OR ELEVATED TEMP, #20 CAP Prov:EUSEBIO FORRESTER NP 07/20/16 Reported Medications [none] Unknown Strength No Conflict Check 07/19/16 Allergies Allergies: Coded Allergies: No Known Allergy (Unverified , 09/23/18) PMhx/Soc History of Surgery: No Anesthesia Reaction: No Hx Neurological Disorder: No Hx Respiratory Disorders: No Hx Cardiac Disorders: No Hx Psychiatric Problems: No Hx Alcohol Use: No Hx Substance Use: No Hx Tobacco Use: No FmHx Family History: No diabetes, No coronary disease, No other Physical Exam Vitals Vital Signs Date Temp Pulse Resp B/P (MAP) Pulse Ox O2 O2 Flow FiO2 Time Delivery Rate 10/02/18 97.4 64 18 107/64 96 11:36 (78) Physical Exam Const: No acute distress. Well-appearing. Talkative. Head: Atraumatic Eyes: Normal Conjunctiva ENT: Normal External Ears, Nose and Mouth. Neck: Full range of motion. No meningismus. Resp: Clear to auscultation bilaterally Cardio: Regular rate and rhythm, no murmurs Abd: Soft, non tender, non distended. Normal bowel sounds Skin: No petechiae or rashes Back: No midline or flank tenderness Ext: No cyanosis, or edema Neur: Awake and alert Psych: Normal Mood and Affect Result Diagram: 10/02/18 1215 10/02/18 1215 Results 24 hrs Laboratory Tests Test 10/02/18 12:15 White Blood Count 8.0 10^3/ul Red Blood Count 3.86 10^6/ul Hemoglobin 12.9 g/dl Hematocrit 37.4 % Mean Corpuscular Volume 96.9 fl Mean Corpuscular Hemoglobin 33.4 pg Mean Corpuscular Hemoglobin Concent 34.5 g/dl Red Cell Distribution Width 11.5 % Platelet Count 287 10^3/UL Mean Platelet Volume 9.8 fl Immature Granulocytes % 0.400 % Neutrophils % 84.9 % Lymphocytes % 9.7 % Monocytes % 4.4 % Eosinophils % 0.1 % Basophils % 0.5 % Nucleated Red Blood Cells % 0.0 /100WBC Immature Granulocytes # 0.030 10^3/ul Neutrophils # 6.8 10^3/ul Lymphocytes # 0.8 10^3/ul Monocytes # 0.4 10^3/ul Eosinophils # 0.0 10^3/ul Basophils # 0.0 10^3/ul Nucleated Red Blood Cells # 0.0 10^3/ul Urine Color ROBERT Urine Clarity CLOUDY Urine pH 5.0 Urine Specific [place] 1.026 Urine Ketones 2+ mg/dL Urine Nitrite NEGATIVE mg/dL Urine Bilirubin NEGATIVE mg/dL Urine Urobilinogen 2+ mg/dL Urine Leukocyte Esterase TRACE Michele/ul Urine Microscopic RBC 3 /HPF Urine Microscopic WBC 16 /HPF Urine Squamous Epithelial Cells FEW /HPF Urine Mucus MANY /HPF Urine Hemoglobin 1+ mg/dL Urine Glucose 1+ mg/dL Urine Total Protein 2+ mg/dl Sodium Level 140 mmol/L Potassium Level 3.8 mmol/L Chloride Level 102 mmol/L Carbon Dioxide Level 23 mmol/L Anion Gap 15 Blood Urea Nitrogen 16 mg/dl Creatinine 0.71 mg/dl Est Glomerular Filtrat Rate mL/min > 60 mL/min Glucose Level 94 mg/dl Calcium Level 10.1 mg/dl Total Bilirubin 0.7 mg/dl Direct Bilirubin 0.00 mg/dl Indirect Bilirubin 0.7 mg/dl Aspartate Amino Transf (AST/SGOT) 18 IU/L Alanine Aminotransferase (ALT/SGPT) 8 IU/L Alkaline Phosphatase 58 IU/L Total Protein 8.3 g/dl Albumin 4.7 g/dl Globulin 3.60 g/dl Albumin/Globulin Ratio 1.30 Lipase 67 U/L Current Medications Medications Dose Sig/Arthur Start Time Status Last (Trade) Ordered Route PRN Stop Time Admin Dose Reason Admin Sodium 1,000 ml @ Q1H STAT 10/02/18 DC 10/02/18 Chloride 1,000 mls/hr IV 11:57 12:20 10/02/18 12:56 10 mg ONCE STAT 10/02/18 DC 10/02/18 Metoclopramid IV 11:57 12:20 e HCl 10/02/18 11:58 (Reglan) Famotidine 20 mg ONCE STAT 10/02/18 DC 10/02/18 (Pepcid Iv) IV 11:57 12:20 10/02/18 11:58 Procedures/MDM Patient presents with vomiting history of vomiting blood over the last day. She currently shows no active vomiting and is well-appearing and talkative. CBC and CMP normal. She was given 1 L normal saline IV, Reglan 10 mg IV, Pepcid 20 mg IV. Urine shows leukocyte esterase and white blood cells. She was given Keflex for this. Patient had a benign abdomen without nausea vomiting on serial exam. Patient presents with vomiting for last day without current signs or symptoms to suggest active bleeding, acute abdomen, additional concerning signs or symptoms. She will be discharged home with close observation and primary care follow-up. She is advised to continue her Reglan as prescribed. She should see her primary doctor this week return to the ER for new or worsening symptoms. The patient was stable with no new complaints during the ER course. Clinically, there is no current evidence to suggest meningitis, sepsis, acute abdomen, pneumonia, stroke, acute coronary syndrome, pulmonary embolism, aortic dissection or any other emergent condition appearing to require further evaluation or hospitalization. Patient counseled regarding my diagnostic impression and care plan. Prior to discharge all questions answered. Pt agrees with treatment plan and understands strict return precautions. Pt is instructed to follow up with primary care provider within 24-48 hours. Precautionary instructions provided including instructions to return to the ER if not improving or for any worsening or changing symptoms or concerns. Disclaimer: Inadvertent spelling and grammatical errors are likely due to EHR/dictation software use and do not reflect on the overall quality of patient care. Also, please note that the electronic time recorded on this note does not necessarily reflect the actual time of the patient encounter. Departure Diagnosis: Primary Impression: Vomiting Vomiting type: unspecified Vomiting Intractability: unspecified Nausea presence: unspecified Qualified Codes: R11.10 - Vomiting, unspecified Additional Impression: UTI in Trimester: first trimester Qualified Codes: O23.41 - Unspecified infection of urinary tract in , first trimester Condition: Stable Patient Instructions: Understanding Urinary Tract Infections (UTIs), Vomiting (6Y-Adult) Referrals: DOCTOR,NOT ON STAFF (PCP) Additional Instructions: Okay to continue Reglan. Current signs or symptoms show no significant abnormalities except there are findings of infection in urine and will treat for this. Recheck for vaginal bleeding, abdominal pain, persistent vomiting, blood, new or worsening symptoms with primary care doctor. KEELY VILLAGOMEZ MD Oct 02, 2018 13:38
[2018-10-02 13:53] VITALS: BP 112/66; PULSE 71; RESP 18
== END 2018-10-02 13:56 | disposition home or self-care (01) ==
LOC: FTE 11:17
DX: O21.8 Other vomiting complicating pregnancy (principal); O23.41 Unspecified infection of urinary tract in pregnancy, first trimester; Z3A.08 8 weeks gestation of pregnancy
CPT/HCPCS: 36415; 80053; 81001; 83690; 85025; 96361; 96374; 96375; 99284; J2765; J7030; Z7610